=== PATIENT | male | born 1980 | race Caucasian/White ===

== ENCOUNTER 2024-09-18 13:16 | Emergency (ER) | payer BC ==
[~2024-09-18] VITALS: Ht 182.9 cm; Wt 136.0 kg
[2024-09-18 13:32] VITALS: O2SAT 97
[2024-09-18 15:14] LABS: CHLORIDE 109 mEq/L (98-107); POTASSIUM 3.7 mEq/L (3.5-5.1); SODIUM 142 mEq/L (136-145)
[2024-09-18 15:15] LABS: CARBON DIOXIDE 24 mEq/L (21-32)
[2024-09-18 15:16] LABS: CALCIUM 9.8 mg/dL (8.7-10.4)
[2024-09-18 15:20] LABS: CREATININE 1.2 mg/dL (0.6-1.3); GLUCOSE 134 mg/dL (70-105); HEMATOCRIT. 44.5 % (42.0-52.0); HEMOGLOBIN. 15.1 g/dL (14.0-18.0); MEAN CORPUSCULAR HEMOGLOBIN 29.9 pg (28.0-32.0); MEAN CORPUSCULAR HGB CONC 33.9 g/dL (31.0-37.0); MEAN CORPUSCULAR VOLUME 88.3 fL (80.0-94.0); MEAN PLATELET VOLUME 9.1 fl (7.4-10.4); PLATELET 234 x1000/uL (130-400); RED BLOOD CELL COUNT 5.04 mill/uL (4.7-6.1); RED CELL DISTRIBUTION WIDTH 12.7 % (11.6-14.6); WHITE BLOOD COUNT 9.3 x1000/uL (4.5-11.0)
[2024-09-18 15:21] LABS: UREA NITROGEN BLOOD 15 mg/dL (9-23)
[2024-09-18 15:23] LABS: DIFFERENTIAL COMMENT 1
[2024-09-18 15:47] LABS: PLATELET ESTIMATE NORMAL; SMUDGE CELLS 1+
[2024-09-18 18:44] LABS: CLARITY URINE CLEAR (CLEAR); COLOR URINE YELLOW (YELLOW); GLUCOSE URINE NEGATIVE (NEGATIVE); KETONES URINE NEGATIVE (NEGATIVE); LEUKOCYTE ESTERASE URINE NEGATIVE (NEGATIVE); NITRITE URINE NEGATIVE (NEGATIVE); OCCULT BLOOD URINE 2+ (NEGATIVE); PH URINE 5.5 (4.5-8.0); PROTEIN URINE NEGATIVE (NEGATIVE); SPECIFIC GRAVITY URINE 1.022 (1.005-1.030)
[2024-09-18 18:53] LABS: ALANINE AMINOTRANSFERASE 38 IU/L (10-49); ALBUMIN 4.5 g/dL (3.2-4.8); ASPARTATE AMINOTRANSFERASE 29 IU/L (<34); BILIRUBIN DIRECT 0.3 mg/dL (<=3.0); PROTEIN TOTAL 7.8 g/dL (6.0-8.3)
[2024-09-18 19:00] LABS: BACTERIA URINE NONE SEEN; SQUAMOUS EPITHELIAL CELL URINE 1+ /lpf (RARE/1+); WBC URINE 0-2 /hpf (0-2)
[2024-09-18] MEDS ORDERED: IBUP-2028 MT (19:01)
[2024-09-18 19:12] VITALS: BP 145/81; PULSE 88; RESP 16; TEMP 36.83628; O2SAT 97
== END 2024-09-18 19:13 | disposition home or self-care (01) ==
LOC: ER 13:16
DX: K21.9 Gastro-esophageal reflux disease without esophagitis (principal); R10.84 Generalized abdominal pain; E78.5 Hyperlipidemia, unspecified; Z88.1 Allergy status to other antibiotic agents
CPT/HCPCS: 36415; 80048; 80076; 81003; 85025; 99283